=== PATIENT | female | born 1975 | race Caucasian/White ===

== ENCOUNTER → 2016-11-03 | Outpatient (CLI) | payer BC | LOC: MC.RAD 15:56 | DX: Z12.31 Encounter for screening mammogram for malignant neoplasm of breast (principal); N64.89 Other specified disorders of breast ==

== ENCOUNTER → 2016-11-09 | Outpatient (CLI) | payer BC | LOC: MC.RAD 13:59 | DX: Z12.39 Encounter for other screening for malignant neoplasm of breast (principal) ==

== ENCOUNTER 2017-06-30 14:26 | Outpatient (RCR) | payer OTHER | END 2017-07-07 13:45 | disposition still patient (30) | LOC: WSOH 14:26 | DX: S46.012A Strain of muscle(s) and tendon(s) of the rotator cuff of left shoulder, initial encounter (principal); X50.0XXA Overexertion from strenuous movement or load, initial encounter; Y99.0 Civilian activity done for income or pay ==

== ENCOUNTER 2017-07-24 10:28 | Outpatient (RCR) | payer OTHER | END 2017-08-14 15:57 | LOC: WSOH 10:28 | DX: S46.012A Strain of muscle(s) and tendon(s) of the rotator cuff of left shoulder, initial encounter (principal); X50.0XXA Overexertion from strenuous movement or load, initial encounter; Y99.0 Civilian activity done for income or pay ==

== ENCOUNTER → 2018-08-01 | Outpatient (CLI) | payer BC | LOC: MC.RAD 07-25 14:00 | DX: Z12.31 Encounter for screening mammogram for malignant neoplasm of breast (principal) ==

== ENCOUNTER → 2020-07-14 | Outpatient (CLI) | payer BC | LOC: MC.RAD 11:33 | DX: Z12.31 Encounter for screening mammogram for malignant neoplasm of breast (principal) ==

== ENCOUNTER → 2022-05-31 | Outpatient (CLI) | payer BC | LOC: MC.RAD 11:18 | DX: Z12.31 Encounter for screening mammogram for malignant neoplasm of breast (principal) ==

== ENCOUNTER → 2023-10-13 | Outpatient (CLI) | payer BC | LOC: CANSCHCLI → MC.RAD 08-18 13:30 | DX: Z12.31 Encounter for screening mammogram for malignant neoplasm of breast (principal) ==